=== PATIENT | female | born 2000 | race African-American/Black ===

== ENCOUNTER 2022-09-30 04:48 | Observation (INO) | payer MEDICAID, OTHER ==
[2022-09-30] MEDS ORDERED: Ondansetron PF 4 MG/2 ML Vial ONE (05:06)
[2022-09-30] MEDS ORDERED: fentaNYL 50 mcg/mL 1 mL Vial ONE (05:07)
[2022-09-30 05:22] LABS: #Monocytes 0.6 10x3/uL (0.0-1.1); #Neutrophils 11.1 10x3/uL (1.5-8.4); %Basophils 0.2 % (0.0-2.0); %Eosinophils 0.1 % (0.0-6.0); %Lymphocytes 9.9 % (18.0-47.0); %Monocytes 4.7 % (0.0-10.0); %Neutrophils 84.6 % (40.0-75.0); Hematocrit 35.3 % (34.9-44.5); Hemoglobin 12.3 g/dL (12.0-15.5); Mean Corpuscular HGB CONC 34.8 g/dL (32.0-36.0); Mean Corpuscular Hemoglobin 27.8 pg (27.0-33.0); Mean Corpuscular Volume 79.7 fl (81.6-98.3); Mean Platelet Volume 10.3 fl (7.4-10.4); Platelet Count 294 10x3/uL (150-450); RBC Distribution Width 12.5 % (11.5-14.5); Red Blood Cell (RBC) Count 4.43 10x6/uL (3.90-5.03); White Blood Cell (WBC) Count 13.1 10x3/uL (3.5-10.5)
[2022-09-30 05:33] LABS: ALT (SGPT) Less than 7 U/L (8-55); AST (SGOT) 14 U/L (5-34); Albumin 3.7 g/dL (3.5-5.0); Alkaline Phosphatase 84 U/L (40-100); Anion Gap 17 mmol/L (10-20); BUN (Urea Nitrogen) 5 mg/dL (7.0-18.7); Bilirubin, Total 0.3 mg/dL (0.2-1.2); Calc. Creatinine Clearance 0 mL/min (70-130); Carbon Dioxide 18 mmol/L (22-29); Chloride 102 mmol/L (98-107); Estimated GFR 128; Globulin 3.9 g/dL (2.4-3.5); Glucose 102 mg/dL (70-105); Potassium 3.4 mmol/L (3.5-5.1); Protein, Total 7.6 g/dL (6.0-8.3); Sodium 134 mmol/L (136-145)
[2022-09-30 07:28] VITALS: BMI 22.6
[2022-09-30] MEDS ORDERED: hydrALAZINE 20 MG/ML VIAL SLOW IVP PRN ×2 (07:28→08:06)
[2022-09-30] MEDS ORDERED: Bupivacaine 0.25% HCL 30 ML VIAL ONE (08:00)
[2022-09-30] MEDS ORDERED: Misoprostol 200 MCG TAB PR PRN (08:06)
[2022-09-30] MEDS ORDERED: Promethazine HCl 25 MG/ML VIAL IM PRN (08:06)
[2022-09-30] MEDS ORDERED: Carboprost 250 MCG/ML AMP IM PRN (08:06)
[2022-09-30] MEDS ORDERED: Diphenoxylate HCl/Atropine Tablet PO PRN ×2 (08:06)
[2022-09-30] MEDS ORDERED: Methylergonovine 0.2 MG/ML VIAL IM PRN (08:06)
[2022-09-30] MEDS ORDERED: Tranexamic Acid 1,000 MG/10 ML VIAL IVP PRN (08:06)
[2022-09-30] MEDS ORDERED: NS w/ Oxytocin 30 units 500 ML IV SCH (08:15)
[2022-09-30 08:19] LABS: Bilirubin Neg (Negative); Blood, Urine 250 (Negative); Clarity Cloudy (Clear); Glucose, Urine (Dipstick) Normal (Negative); Ketone, Urine 150 mg/dL (Negative); Leukocyte 500 (Negative); Nitrite Negative (Negative); Protein, Urine (Dipstick) 30 mg/dl (Neg-Trace); Specific Gravity, Urine 1.015 (1.005-1.030); Urobilinogen Normal mg/dL (Less than 2)
[2022-09-30] MEDS: fentaNYL 50 mcg/mL 1 mL Vial SLOW IVP PRN ×4 (08:23→15:49)
[2022-09-30 08:25] LABS: Amphetamine Not Detected (NotDetected); Barbiturates Screen Not Detected (NotDetected); Benzodiazepine Screen Not Detected (NotDetected); Cocaine Metabolite Screen Not Detected (NotDetected); Methadone Not Detected (NotDetected); Methamphetamine Not Detected (NotDetected); Opiate Screen Not Detected (NotDetected); Oxycodone Screen Not Detected (NotDetected); Phencyclidine (PCP) Not Detected (NotDetected); THC/Cannabinoid Screen Not Detected (NotDetected); Tricyclic Screen Not Detected (NotDetected)
[2022-09-30 08:42] LABS: Bacteria/HPF 3+ HPF (None Seen); CAUTI Indications for Culture Pelvic or flank pain; Mucous/LPF 1+ LPF (<2+); RBC/HPF Greater than 50 HPF (0-3); Squamous Epithelial 0-3 HPF (0-3)
[2022-09-30 08:43] LABS: Urine Culture Reflex Yes Yes
[2022-09-30] MEDS: Ondansetron PF 4 MG/2 ML Vial IVP PRN (11:02)
[2022-09-30] MEDS ORDERED: Nitrofurantoin Monohyd/M-Cryst 100 MG CAP PO SCH (13:00)
[2022-09-30] MEDS: Lactated Ringer's 1,000 ML IV SCH (13:30)
[2022-09-30 13:31] LABS: HIV (1/2) Antibody/Antigen Non-Reactive (NonReactive); HIV 1/2 INDEX 0.06 S/CO (<1.00)
[2022-09-30 20:41] LABS: Chlamydia by PCR, Vaginal Swab Not Detected (NotDetected); GC by PCR, Vaginal Swab Not Detected (NotDetected)
[2022-10-01] MEDS: fentaNYL 50 mcg/mL 1 mL Vial SLOW IVP PRN ×2 (00:13→11:33)
[2022-10-01] MEDS: Nitrofurantoin Monohyd/M-Cryst 100 MG CAP PO SCH ×3 (08:42→22:45)
[2022-10-01] MEDS ORDERED: HYDROcodone/Acetaminophen 5/325 mg Tablet PO PRN ×2 (10:15)
[2022-10-01] MEDS: Misoprostol 200 MCG TAB PO SCH ×3 (10:43→23:01)
[2022-10-01] MEDS: Ondansetron PF 4 MG/2 ML Vial IVP PRN (11:41)
[2022-10-01] MEDS ORDERED: fentaNYL/Ropivacaine Epidural 100 ML ONE (12:25)
[2022-10-01] MEDS ORDERED: diphenhydrAMINE 50 MG/ML VIAL IVP PRN (13:20)
[2022-10-01] MEDS ORDERED: Promethazine HCl 25 MG/ML VIAL IM PRN (13:20)
[2022-10-01] MEDS ORDERED: Moisturizing Cream (Eucerin) 113 GM JAR TOP PRN (13:20)
[2022-10-01] MEDS ORDERED: Ondansetron PF 4 MG/2 ML Vial IVP PRN (13:20)
[2022-10-01] MEDS ORDERED: Lactated Ringer's 500 ML IV PRN (13:20)
[2022-10-01] MEDS ORDERED: Acetaminophen 325 MG TAB PO PRN (13:20)
[2022-10-01] MEDS ORDERED: ePHEDrine Sulfate 50 MG/10 ML VIAL SLOW IVP PRN (13:20)
[2022-10-01] MEDS ORDERED: Naloxone HCl 0.4 mg/ml Vial IVP PRN ×2 (13:20)
[2022-10-01] MEDS ORDERED: Communication Order-Pharmacy FS SCH (13:30)
[2022-10-01] MEDS ORDERED: fentaNYL 2 mcg/Ropivacaine 0.2% Epidural 100 ML CADD EPIDURAL SCH (13:30)
[2022-10-01] MEDS: Lactated Ringer's 1,000 ML IV SCH (13:57)
[2022-10-02 05:14] LABS: Toxoplasma IgG AB Less than 3.0 IU/mL (0.0-7.1)
[2022-10-02 07:36] VITALS: BP 99/51; TEMP 98.1
[2022-10-03 14:42] LABS: Parvovirus B19 IgG ABS 0.2 index (0.0-0.8); Parvovirus B19 IgM ABS 0.1 index (0.0-0.8)
[2022-10-04 00:13] LABS: CMV DNA-PCR Test Negative (Negative)
== END 2022-10-02 08:00 | disposition home or self-care (01) ==
LOC: CSHERS 04:48 → CSHLD/OP 07:03 → CSHLD 08:06 → CSHPED 10-01 22:07
PROVIDERS: ADMIT Obstetrics & Gynecology; ATTEND Obstetrics & Gynecology
DX: O46.92 Antepartum hemorrhage, unspecified, second trimester (principal); O99.342 Other mental disorders complicating pregnancy, second trimester; F31.9 Bipolar disorder, unspecified; F41.9 Anxiety disorder, unspecified; O73.1 Retained portions of placenta and membranes, without hemorrhage; Z91.013 Allergy to seafood; Z79.899 Other long term (current) drug therapy; Z3A.17 17 weeks gestation of pregnancy
CPT/HCPCS: 36415; 51702; 76815; 80053; 80306; 81001; 84702; 85025; 86747; 86762; 86777; 86778; 86850; 86900; 86901; 87086; 87389; 87480; 87491; 87497; 87510; 87529; 87591; 87660; 88300; 88305; 96376; 99285; G0378; J2405; J3010; J7120; S0020